=== PATIENT | female | born 1975 | race Caucasian/White ===

== ENCOUNTER → 2016-04-12 | Outpatient (CLI) | payer OTHER ==
--- NOTE | 2016-04-12 09:46 | US ---
April 12, 2016 Dear Providers at the Center [facility], Thank you for requesting consultation and a detailed obstetrical ultrasound for Mrs. Yao hook y to advanced maternal age and IVF . As you know, Lea is a 41 year old G 3, P 0020 . Her d ue date is 08/31/16 by IVF dating. Her current gestational age based on this dating is 19 weeks 6 da ys. Her genetic screening revealed preimplantation genetic diagnosis that was reassuring. She was o ffered and declined aneuploidy screening while . She has a known fibroid uterus and is hypot hyroid on replacement. ULTRASOUND Number of fetuses: 1 Placental location: Posterior; no evidence of previa Placental cord insertion: Intraplacental presentation: Breech Cervix: 4.1 cm viewed transabdominally Maximum Vertical Pocket: 4.6 cm The adnexa were evaluated. No pathology was seen. Right ovary is visualized and appears normal. It measures 1.8 x 1.7 x 1.8 cm. Left ovary is suboptimally seen. Small fibroid of the posterior uterine wall measuring 3.2 x 3.2 x 2.9 cm. Previously measured 4.0 x 3 .5 x 3.0 cm. MEASUREMENTS: Biparietal diameter: 45 mm 19 weeks, 5 days Head circumference: 172 mm 19 weeks, 6 days Abdominal circumference: 162 mm 21 weeks, 3 days Femur length: 33 mm 20 weeks, 2 days Humerus length: 33 mm 21 weeks, 2 days Transcerebellar diameter: 20 mm 19 weeks, 4 days Average ultrasound age: 20 weeks, 3 days Estimated weight: 370 gm weight percentile: 88% ANATOMY Supratentorial brain: Normal including views of the falx, cavum septum pellucidum and choroids Lateral Ventricle: Normal, measuring 6.9 mm Posterior fossa: Normal including the cerebellum and cisterna magna Spine: Normal Nuchal fold: 3.3 mm normal Face: Normal views of the lip and nose area Profile: Normal Palate: Normal appearance of the alveolar ridge Cardiac Exam: Four chamber view of the heart: Normal including intraventricular septum Left Ventricular Outflow Tract: Limited that appears correctly oriented Right Ventricular Outflow Tract: Limited that appears correctly oriented 3 Vessel View: Suboptimal Tracheal View: Suboptimal Aortic Arch: Normal Ductal Arch: Normal SVC/IVC: Suboptimal Heart Rate: 152 bpm Diaphragm: No overt abnormalities have been detected Stomach: Normal Umbilical cord insertion: Normal Right kidney: Normal Left kidney: Normal Bladder: Normal Number of cord vessels: Three Upper extremities: Normal including the number, and architecture Lower extremities: Normal including the number and architecture Gender: Undisclosed; "Normal" IMPRESSION: 1. Intrauterine at 19 w 6 d, SHERYL of 08/31/16. This is consistent with her previously esta blished dates. 2. Today's sonogram reveals a normal appearing fetus. 3. Cervical length measures 4.1 cm, and is without evidence of insufficiency. 4. Advanced maternal age 5. IVF with preimplantation genetic diagnosis 6. Small fibroid; stable RECOMMENDATIONS: I was pleased to review today's ultrasound with your patient. I have reassured her that the gr owth and amniotic fluid volume are appropriate for this gestational age. The detailed anatomic surve y did not reveal any overt abnormalities. Lea is aware that ultrasound is a screening tool an d cannot provide definitive genetic diagnosis. Should she desire definitive genetic diagnosis, she w ould need to have a genetic amniocentesis performed. After our discussion regarding the procedure, b enefits, risks, alternatives, and limitations to the information received Lea DECLINES amniocentesis. Recommendations: 1. Lea is scheduled for a screening echocardiogram on 05/02/16 2. Recommend an assessment of growth for all women >40 years between 30-32 weeks. 3. Consider testing at 36 weeks (unless indicated sooner) for women age 40 and older. Thank you for allowing me the opportunity to consult and evaluate your patient. Should you have any questions or concerns please do not hesitate to contact me. This visit was approximately 15 minutes in length with 10 minutes spent in direct face to face consultation reviewing aneuploidy screening ve rsus definitive genetic diagnosis. Sincerely, Urvashi Ross MD [employer] Director Maternal Medicine Department of Obstetrics & Gynecology [facility]
--- NOTE | 2016-04-12 11:14 | US ---
Detailed Obstetric Ultrasound Indication: Advanced maternal age. Check growth and anatomy. History of uterine fibroids. IVF p regnancy. Maternal hypothyroidism. Comparison: February 20, 2016 Dr. Urvashi Ross was present during imaging. Findings: Biometry: Average gestational age by ultrasound: 20 weeks 3 days with EDC by ultrasound of August 27, 2016. Estimated gestational age by IVF datin weeks 6 days with an EDC by IVF of August 31, 2016. Maternal Ovaries: Normal in appearance with the right ovary measuring 1.8 x 1.7 x 1.8 cm the left ova ry measuring 2.1 x 1.2 x 1.2 cm. Maternal fibroid posterior lower uterine segment, subserosal, 3.2 x 3.2 x 2.9 cm (previously 1.5 x 1. 8 x 2.4 cm). Previously documented small fibroids measuring up to 1 cm not as well-visualized on toeric y's study. Number: 1 Presentation: Breech presentation at this time. Placental location: Posterior without previa. Central umbilical cord insertion. Cervix: 4.1 cm from transabdominal measurement. Amniotic fluid maximum vertical pocket: 4.6 cm Biparietal diameter: 19 weeks 5 days, 4.52 cm Head circumference: 19 weeks 6 days, 17.19 cm Abdominal circumference: 21 weeks 3 days, 16.24cm Femur length: 20 weeks 2 days, 3.28 cm Humerus length: 21 weeks 2 days, 3.33 cm Transcerebellar diameter: 19 weeks 4 days, 2.03 cm Estimated weight is 370 gms (13 ounces). The estimated weight is at the 88th percentile b ased on LMP. Anatomy Survey: Supratentorial brain: Normal Posterior fossa: Normal Spine: Normal Nose and lips: Normal Profile: Normal Heart: Four chamber heart with normal interventricular septum heart rate of 152 bpm. RVOT: Normal LVOT: Normal Stomach: Normal Umbilical cord insertion: Normal Kidneys: Normal, no pyelectasis Bladder: Normal Number of cord vessels: Three Upper extremities: Normal Lower extremities: Normal Gender: Female Impression: 1. Living juarez in breech presentation. 2. Size concordant with dates as detailed above. 3. Unremarkable anatomy. No anomalies detected.
== END ==
LOC: FIMAGING 08:18
PROVIDERS: ATTEND Advanced Practice Midwife
DX: O09.522 Supervision of elderly multigravida, second trimester (principal); O09.812 Supervision of pregnancy resulting from assisted reproductive technology, second trimester; D25.9 Leiomyoma of uterus, unspecified; Z3A.19 19 weeks gestation of pregnancy

== ENCOUNTER 2016-09-06 06:50 | Inpatient (IN) | payer OTHER ==
--- NOTE | 2016-09-06 07:13 | PREANESOB ---
Obstetric Pre-Anesthesia Info - General Info Proposed Procedure: Labor and delivery. : 3 Para: 0 WBD: 41 - Info Status: Postmature Monitors: External FHR Baseline (bpm): 140 FHR Pattern: Reassuring - Labor Status Cervical Dilation per last OB SVE: 5 Indications for Labor Analgesia: Pain Control Labor Epidural: Proposed Anesthesia ROS: IVF , Hypothyroid. Allergies/Adverse Reactions: Allergy/AdvReac Type Severity Reaction Status Date / Time No Known Allergies Allergy Unverified 09/06/16 07:26 - Anesthesia History Response to Local Anesthetics: Normal Anesthesia & Operative History: No Prior Problems Family Anesthesia History: Negative - Social History Substance Use/Abuse: Denies - Focused Exam Blood Pressure: 129/61 Heart Rate: 104 Airway: No abnormalities Physical Exam: Within normal limits. ASA Status: II - Plan Anesthetic Plan: CSE Consent Signed and on Chart: Yes Patient/Guardian Understands and Agrees to Plan: Yes Urgent/Emergent Case: Nan adams completed preop but documented later for safe timely pt care
--- NOTE | 2016-09-06 07:26 | POSTANESTH ---
Post Anesthetic Evaluation Cardiovascular Status: Normal, Stable Respiratory Status: Normal, Stable, Similar to Pre-op Cond. Level of Consciousness/Mental Status: Can Participate in Eval, Alert and Oriented Pain Control: Adequate, Prn Tx Ordered Nausea/Vomiting Control: Adequate, Prn Tx Ordered Complications Possibly Related to Anesthesia: None Noted
[2016-09-06] MEDS ORDERED: OXYTOCIN/RINGERS LACTATE 1,000 ML IV PRN (07:27)
[2016-09-06] MEDS ORDERED: TERBUTALINE SULFATE 1 MG/ML VIAL IV PRN (07:27)
[2016-09-06] MEDS ORDERED: LR 1,000 ML IV PRN (07:27)
[2016-09-06] MEDS ORDERED: OLIVE OIL 118 ML BTL MISC PRN (07:27)
[2016-09-06] MEDS ORDERED: EPSOM SALT 454 GM TP PRN (07:27)
[2016-09-06] MEDS ORDERED: fentaNYL 2MCG/ML/BUP 0.1% RTU 100 ML BAG EP ONE (07:46)
[2016-09-06] MEDS ORDERED: PHENYLEPHRINE HCL 100 MCG/ML SYR ONE (07:47)
[2016-09-06] MEDS ORDERED: BUPIVACAINE 0.25% 30 ML SDV ONE (07:47)
[2016-09-06 07:58] LABS: ADD DIFF? YES; ADD MORPH? NO; ADD SCAN? NO; ATYPICAL LYMPHOCYTE FLAG 0 (0-99); FRAGMENT RBC FLAG 0 (0-99); HEMATOCRIT 42.8 % (38.0-47.0); HEMOGLOBIN 14.3 g/dL (12.6-16.3); LEFT SHIFT FLG 30 (0-99); LIPEMIA HEMOLYSIS FLAG 80 (0-99); MEAN CELL HEMOGLOBIN CONCENTR. 33.4 g/dL (32.4-36.7); MEAN CELL VOLUME 89.9 fL (81.5-99.8); MEAN PLATELET VOLUME 11.5 fL (8.7-11.7); PLATELET CLUMPS FLAG 10 (0-99); PLATELET COUNT 223 10^3/uL (150-400); RED BLOOD CELL COUNT 4.76 10^6/uL (4.18-5.33); RED CELL DISTRIBUTION WIDTH 14.7 % (11.5-15.2)
[2016-09-06] MEDS ORDERED: ONDANSETRON 4 MG/2 ML VIAL IVP PRN (08:39)
[2016-09-06] MEDS ORDERED: PHENYLEPHRINE HCL 100 MCG/ML SYR IVP PRN (08:39)
[2016-09-06] MEDS ORDERED: LR 500 ML IV PRN (08:59)
[2016-09-06] MEDS ORDERED: LR 500 ML IV SCH (09:00)
[2016-09-06] MEDS ORDERED: fentaNYL 2MCG/ML/BUP 0.1% RTU 100 ML EP SCH (09:00)
[2016-09-06] MEDS ORDERED: OXYTOCIN/RINGERS LACTATE 500 ML IV SCH (09:00)
[2016-09-06 09:12] LABS: PLATELET ESTIMATE ADEQUATE (ADEQ)
[2016-09-06] MEDS ORDERED: OLIVE OIL 118 ML BTL ONE (09:22)
[2016-09-06] MEDS ORDERED: AMMONIA AROMATIC 1 EACH AMP IH ONE (09:22)
[2016-09-06] MEDS ORDERED: LIDOCAINE 1% 300 MG/30 ML SDV ONE (09:22)
[2016-09-06] MEDS ORDERED: MISOPROSTOL 200 MCG TAB ONE (09:23)
[2016-09-06] MEDS ORDERED: TERBUTALINE SULFATE 1 MG/ML VIAL ONE (09:23)
--- NOTE | 2016-09-06 13:28 | OBPROG ---
OBG Labor Progress Note Assessment/Plan: Assessment: IUP at 40w5d - transfer from [facility] SROM 19:30 - light meconium DARWIN Pitocin augmentation hx of myomectomy - hysteroscopic Plan: On pit - feeling pressure - bolus DARWIN 09/06/16 13:24 Subjective: Pt doing well and has been able to rest. Starting to feel more low abd discomfort. Will bolus DARWIN Objective: 09/06/16 07:30 Patient ABO/Rh O POSITIVE 09/06/16 07:30 Temp Pulse Resp BP Pulse Ox 104 H 129/61 H 09/06/16 08:39 09/06/16 08:39 - SVE Dilation (cm): 9 Effacement (%): 100 Station: +1 Calderon Current Contraction Pattern: Regular (q 2-4 min on Pit 10 mu/min) FHR (bpm): 130 FHR Pattern Variability: Moderate FHR Category: 1 Membranes: SROM Amniotic Fluid Color: Meconium Stained Oxytocin Orders Assessment - Pre-Induction/Augmentation Assessment Gestational Age: 40 week(s) and 6 day(s) ICD10 Worksheet Patient Problems: Problems Problem Status Onset Meconium in amniotic fluid affecting management of mother Acute
--- NOTE | 2016-09-06 14:55 | GHP ---
[f rep st] PREOP HISTORY AND PHYSICAL DATE OF ADMISSION: 09/06/2016 HISTORY UPON ADMISSION: The patient is a 41-year-old, G3, A2, at 40 weeks and 5 days, with an estim ated due date of 08/31/2016 established by IVF transfer, who has been followed by [facility] and is requesting pain management and also has meconium-stained fluid. The patient had spontaneo us onset of contractions at 1500 on 09/05, that were manageable, that increased after spontaneous ru pture of membranes at 1930. There was meconium-stained fluid upon rupture of membranes. The rl flores's pain did increase following rupture, and the patient was noted to be 4 cm dilated. A couple of hours after rupture of membranes and at approximately 2:30 in the morning, the patient was 5 cm dila osiel. The senior application security consultant did not feel there was progress at 6:00 a.m. with another exam showing 5 cm dilati on, and the patient at this point was extremely uncomfortable and requested an epidural. The patien mark then was brought to [facility] for labor management and requesting an epidural. T he patient was continuing to have leakage of fluid with light meconium staining. Upon admission, th e patient's IV was started and initial laboratory drawn, and Dr. Kirk has placed an epidural afte r admission. The patient is comfortable with the epidural and able to rest. During the labor progr ess, the patient was feeling good movement. CARE: The patient was followed by the [facility] [place], with essentially an uncomp licated . The patient did have IVF with [facility]. The patient had a 20-week ultrasound with alyce das specialist, Dr. Ross, and that exam was normal. At that time, the patient was noted to have a uterine fibroid 4 x 3 cm. The patient also with the IVF history had a echo that was normal in the . The patient is advanced maternal age, and received twice weekly NSTs sin e 36 weeks. The patient has been followed for hypothyroidism, and has had TSH checks multiple times through the . The patient has been stable on her medication. LABS: Maternal blood type O positive, with negative antibody screen, RPR nonreactive, hepa titis B surface antigen nonreactive, hepatitis C nonreactive, rubella immune, HIV nonreactive. Init ial platelets 232,000, and hematocrit 43%. Gonorrhea and chlamydia were negative. Pap smear was no rmal with negative HPV. Urine analysis and culture were negative. Multiple thyroid checks were in the normal range. Vitamin D was 42. Preconception genetic analysis was normal. MSAFP was negative . A 1-hour Glucola was normal. A recheck of the hematocrit had dropped to 38%. GBS culture was ne gative. Additionally, a CMV was performed, it was negative. PAST MEDICAL HISTORY: Hypothyroidism, and anxiety after 2 losses. PAST SURGICAL HISTORY: Appendectomy in 2002, myomectomy in 2015. There is no clear documentation a s to the exact nature of the myomectomy. One comment in the records from the Center reveals t hat this was a polyp removed via myomectomy. The patient does report that she was told she had fibr oids removed, and it was at a [facility] in 2014. The patient reports it was under anesthesia with a vaginal approach. She was not given any caution that this would necessitate a C-s ection delivery. The patient then also reports having an HSG with [facility]. PAST HISTORY: A SAB at 10 weeks gestation in February 2015, and another SAB at 6 weeks ge station in July 2015. ALLERGIES: No known drug allergies. CURRENT MEDICATIONS: Levothyroxine at 75 mcg a day, and other supplements. No other prescription m edicines. SOCIAL HISTORY: The patient has a same sex partner, and she is here and supportive. The patient is a nonsmoker. No alcohol or drug use. PHYSICAL EXAMINATION: GENERAL: The patient is a well-developed, well-nourished, white female, sign ificantly more comfortable now with epidural. VITAL SIGNS: The patient's blood pressures in the no rmal ranges before the epidural, 120s 130s over 60s to 70s. The patient is afebrile. Upon monitori ng, the baby has a category 1 tracing with a baseline in the 130s with moderate variability and good accelerations. There has been no decelerations noted. Initially after the epidural, contractions were spaced out greater than 4 to 5 minutes, mild intensity. PELVIC: Exam performed and light meco nium was noted. Cervix was 7 cm and 100% effaced, at 0 station. The cervix was very soft and stret chable, up to 8 cm. EXTREMITIES: Nontender with 2+ edema. ASSESSMENT: Advanced maternal age at 41 with intrauterine at 40 weeks and 5 days, with tr hugo from [facility] for pain management. Now comfortable with an epidural. The patient has devlin d light meconium since rupture of membranes at 1930 on 09/05. GBS is negative. Discussed with sandra ent initiating Pitocin for labor augmentation, and she agrees. The patient does have a history of a myomectomy, which by the patient's account of the procedure, did not sound like it was transmural. Have requested from the [facility] to send any operative reports that they have received, but do not have anything at this time. History of IVF through [facility] with donor sperm. Echo gema l in the . Hypothyroidism, on medication with normal labs. PLAN: We will continue the Pitocin to advance labor. /[id number]/MODL
[2016-09-06] MEDS ORDERED: CALCIUM CARBONATE 500 MG CHEWABLE TAB PO ONE (16:45)
[2016-09-06] MEDS ORDERED: fentaNYL 100 MCG/2 ML INJ ONE (19:56)
[2016-09-06] MEDS ORDERED: METHYLERGONOVINE MAL 0.2 MG/ML INJ ONE (20:01)
[2016-09-06] MEDS ORDERED: ACETAMINOPHEN 325 MG TAB PO PRN (21:03)
[2016-09-06] MEDS ORDERED: fentaNYL 100 MCG/2 ML INJ IVP PRN (21:04)
--- NOTE | 2016-09-06 21:10 | OBDEL ---
Info Type: Vaginal GBS+: No Indications for Delivery: Spontaneous Labor (transfer from [facility] for DARWIN) , SROM Vaginal Delivery - Labor and Delivery Onset of Contractions Date: 09/05/16 Onset of Contractions Time: 15:00 Onset of Contractions Type: Spontaneous Rupture of Membranes Date: 09/05/16 Rupture of Membranes Time: 19:30 Rupture of Membranes Type: Spontaneous Amniotic Fluid Color: Meconium Stained Dilation Complete Date: 09/06/16 Dilation Complete Time: 15:30 Placenta Delivery Date: 09/06/16 Placenta Delivery Time: 20:16 Total Hours of Labor: 29 Laceration: 2nd Degree Repair: 2-0, 3-0, Vicryl Vaginal Sponge Count Correct: Yes Vaginal Needle Count Correct: Yes Vaginal Sweep Performed: No EBL: 700 Delivery Events: Nuchal Cord (x1 tight and cut on perineum), Post Hemorrhage (before delivery of placenta - two large gushes - delayed delivery of placenta and manual extraction from uterine vault but had fully...uterine lining thin - by ultrasound - maintained good tone but small amount free flow.) - Medications Labor Augmentation/Induction Methods Used: Pitocin Labor Augmentation/Induction Indication: Other (Specify) (protracted labor ctxns following DARWIN) [place] Data Calderon Delivery Date: 09/06/16 Delivery Time: 19:43 SHERYL: 08/31/16 Gestational Age: 40 week(s) and 6 day(s) Sex of : Female Score (1 Min): 8 Score (5 Min): 9 ICD10 Worksheet Patient Problems: Problems Problem Status Onset (spontaneous vaginal delivery) Acute
--- NOTE | 2016-09-06 21:19 | OBGCSDC ---
General Delivery Information - General Info : 3 Para: 1 Abortions: 2 (SABs x 2) Delivery Physician/CNM: Malaika Salomon Admission Date: 09/06/16 Labs: Patient ABO/Rh O POSITIVE 09/06/16 07:30 Hct 42.8 % (38.0-47.0) 09/06/16 07:30 Vaginal - Diagnosis Labor: Spontaneous Presentation at Delivery: Vertex Rupture of Membranes Type: Spontaneous Amniotic Fluid Color: Meconium Stained Laceration: 2nd Degree Repair: 2-0, 3-0, Vicryl Delivery Events: Nuchal Cord (x1 tight and cut on perineum), Post Hemorrhage (before delivery of placenta - two large gushes - delayed delivery of placenta and manual extraction from uterine vault but had fully...uterine lining thin - by ultrasound - maintained good tone but small amount free flow.) - Hospital Course Antepartum: followed by [facility] - IVF with [facility] - had echo - normal. Hx of hysteroscopic myomectomy - no records. AMA Intrapartum: SOOC at 1500 on 09/05, SROM at 1930 on 09/05, mec noted upon SROM - brought in from [facility] at 6 am requesting DARWIN. 7/100/0 on admit, pit augment for protracted ctxns. complete at 1530 - pushed 4hours. delayed delivery of placenta - 30 min. manually extracted from uterus but had already released -- 700 EBL, majority of which was before placenta out. u/s checked and thin lining - good tone - Delivery Type: Vaginal EBL: 700 Data Calderon Delivery Date: 09/06/16 Delivery Time: 19:43 SHERYL: 08/31/16 Gestational Age: 40 week(s) and 6 day(s) Sex of Infant: Female Score (1 Min): 8 Score (5 Min): 9
[2016-09-07] MEDS: LEVOTHYROXINE 75 MCG TAB PO SCH (06:04)
[2016-09-07] MEDS: IBUPROFEN 600 MG TAB PO PRN ×3 (06:07→18:59)
[2016-09-07] MEDS: DOCUSATE SODIUM 100 MG CAP PO PRN (06:39)
[2016-09-07] MEDS: HYDROCODONE/APAP 5/325 TAB PO PRN ×4 (06:40→23:21)
--- NOTE | 2016-09-07 21:45 | OBPP ---
Progress Note Assessment/Plan: Assessment: ppd# 1 s/p breast feeding Plan: routine post care 09/07/16 21:43 Subjective: patient is doing well. pain is well controlled. started ibuprofen and norco. denies headache and changes in vision. denies headache and changes in vision. normal lochia. working on breast feeding. baby very fussy. considering donor milk. Objective: 09/07/16 06:45 Patient ABO/Rh O POSITIVE 09/06/16 07:30 Temp Pulse Resp BP Pulse Ox 36.5 C 91 15 91/60 L 97 09/07/16 08:50 09/07/16 08:50 09/07/16 08:50 09/07/16 08:50 09/07/16 08:50 Uterine Position/Fundal Height: At Umbilicus Uterine Tone: Firm Physical Exam - Physical Exam General Appearance: WD/WN, alert, no apparent distress Respiratory: chest non-tender, lungs clear, normal breath sounds Cardiac/Chest: normal peripheral pulses, regular rate, rhythm Abdomen: normal bowel sounds, hypoactive bowel sounds Extremities: normal range of motion, non-tender, normal inspection, normal capillary refill Skin: normal color, warm/dry Neuro/Psych: no motor/sensory deficits, alert, normal mood/affect, oriented x 3
[2016-09-07 21:55] VITALS: BP 96/54; PULSE 89; RESP 16; TEMP 97.4; O2SAT 96
[2016-09-08] MEDS: IBUPROFEN 600 MG TAB PO PRN ×3 (00:58→14:27)
[2016-09-08] MEDS: LEVOTHYROXINE 75 MCG TAB PO SCH (07:42)
[2016-09-08] MEDS: HYDROCODONE/APAP 5/325 TAB PO PRN (07:46)
[2016-09-08] MEDS: DOCUSATE SODIUM 100 MG CAP PO PRN (07:46)
--- NOTE | 2016-09-08 09:06 | OBPP ---
Progress Note Assessment/Plan: Assessment: ppd# 2 s/p breast feeding Plan: routine post care discharge instructions 09/08/16 09:04 Subjective: patient is doing well. pain is well controlled. normal lochia. denies headache and changes in vision. working in breast feeding. used donor milk yesterday. passing gas. denies headache and changes in vision. Objective: 09/07/16 06:45 Patient ABO/Rh O POSITIVE 09/06/16 07:30 Temp Pulse Resp BP Pulse Ox 36.3 C 89 16 96/54 L 96 09/07/16 21:53 09/07/16 21:53 09/07/16 21:53 09/07/16 21:53 09/07/16 21:53 Physical Exam - Physical Exam General Appearance: WD/WN, alert, no apparent distress Neck: non-tender, full range of motion Respiratory: chest non-tender, lungs clear, normal breath sounds Cardiac/Chest: normal peripheral pulses, regular rate, rhythm Abdomen: normal bowel sounds, hypoactive bowel sounds Extremities: normal range of motion, non-tender, normal inspection, normal capillary refill Skin: normal color, warm/dry Neuro/Psych: no motor/sensory deficits, alert, normal mood/affect, oriented x 3
--- NOTE | 2016-09-08 09:16 | OBGCSDC ---
General Delivery Information - General Info : 3 Para: 0 Delivery Physician/CNM: Malaika Salomon Labs: Patient ABO/Rh O POSITIVE 09/06/16 07:30 Hct 28.1 % (38.0-47.0) L D 09/07/16 06:45 Vaginal - Diagnosis Labor: Spontaneous Presentation at Delivery: Vertex Rupture of Membranes Type: Spontaneous Amniotic Fluid Color: Meconium Stained Laceration: 2nd Degree Repair: 2-0, 3-0, Vicryl Delivery Events: Nuchal Cord (x1 tight and cut on perineum), Post Hemorrhage (before delivery of placenta - two large gushes - delayed delivery of placenta and manual extraction from uterine vault but had fully...uterine lining thin - by ultrasound - maintained good tone but small amount free flow.) - Operations/Procedures L&D Analgesia/Anesthesia Type: Epidural - Hospital Course Antepartum: concieved by ivf. care at [facility]. srom at 40 5/7 weeks. meconium. came in for pain management . Intrapartum: epidural. pushed x 4 hours. : issues with . working with lacation and supplementing with donor milk. norco and ibuprofen for pain. normal lochia. - Delivery L&D Analgesia/Anesthesia Type: Epidural Data Calderon Delivery Date: 09/06/16 Delivery Time: 19:43 SHERYL: 08/31/16 Gestational Age: 41 week(s) and 1 day(s) Sex of : Female [place] Weight (gm): 4514 kg Score (1 Min): 8 Score (5 Min): 9 Discharge Information - Discharge Information Condition: Good
== END 2016-09-08 17:15 | disposition home or self-care (01) | DRG 774 ==
LOC: FLD 06:50 → FOB 23:42
PROVIDERS: ADMIT Obstetrics & Gynecology; ATTEND Obstetrics & Gynecology
PROC: 0KQM0ZZ Repair Perineum Muscle, Open Approach (ICD-10-PCS; principal; 2016-09-06)
PROC: 10E0XZZ Delivery of Products of Conception, External Approach (ICD-10-PCS; principal; 2016-09-06)
DX: O48.0 Post-term pregnancy (principal); Z37.0 Single live birth; O72.1 Other immediate postpartum hemorrhage; Z3A.40 40 weeks gestation of pregnancy; O99.284 Endocrine, nutritional and metabolic diseases complicating childbirth; E03.9 Hypothyroidism, unspecified; O34.13 Maternal care for benign tumor of corpus uteri, third trimester; D25.9 Leiomyoma of uterus, unspecified; O69.2XX0 Labor and delivery complicated by other cord entanglement, with compression, not applicable or unspecified; O70.1 Second degree perineal laceration during delivery
CPT/HCPCS: J2210; J2370; J2590; J3010; J3105

== ENCOUNTER → 2016-09-14 | Outpatient (CLI) | payer OTHER | LOC: FLACT 09:22 | PROVIDERS: ATTEND Obstetrics & Gynecology | DX: O92.5 Suppressed lactation (principal) | CPT/HCPCS: G0463 ==

== ENCOUNTER → 2016-10-09 | Outpatient (CLI) | payer OTHER | LOC: FLACT 12:48 | PROVIDERS: ATTEND Obstetrics & Gynecology | DX: Z39.1 Encounter for care and examination of lactating mother (principal) | CPT/HCPCS: G0463 ==

== ENCOUNTER 2016-11-29 10:42 | Emergency (ER) | payer MEDICAID, OTHER ==
[2016-11-29 12:43] LABS: % IMMATURE GRANULYOCYTES 0.2 % (0.0-1.1); ABSOLUTE IMMATURE GRANULOCYTES 0.02 10^3/uL (0.00-0.10); ADD DIFF? NO; ADD MORPH? NO; ADD SCAN? NO; ATYPICAL LYMPHOCYTE FLAG 20 (0-99); FRAGMENT RBC FLAG 0 (0-99); HEMATOCRIT 39.7 % (38.0-47.0); HEMOGLOBIN 12.9 g/dL (12.6-16.3); LEFT SHIFT FLG 0 (0-99); LIPEMIA HEMOLYSIS FLAG 80 (0-99); MEAN CELL HEMOGLOBIN 28.9 pg (27.9-34.1); MEAN CELL HEMOGLOBIN CONCENTR. 32.5 g/dL (32.4-36.7); MEAN CELL VOLUME 88.8 fL (81.5-99.8); MEAN PLATELET VOLUME 11.8 fL (8.7-11.7); PLATELET CLUMPS FLAG 10 (0-99); PLATELET COUNT 207 10^3/uL (150-400); RED BLOOD CELL COUNT 4.47 10^6/uL (4.18-5.33); RED CELL DISTRIBUTION WIDTH 14.6 % (11.5-15.2)
[2016-11-29 13:01] LABS: ANION GAP 11 mEq/L (8-16); CALCIUM 9.3 mg/dL (8.5-10.4); CARBON DIOXIDE 24 mEq/l (22-31); CHLORIDE 102 mEq/L (97-110); CREATININE 0.8 mg/dL (0.6-1.0); GLOMERULAR FILTRATION RATE > 60; GLUCOSE 90 mg/dL (70-100); POTASSIUM 4.2 mEq/L (3.5-5.2); SODIUM 137 mEq/L (134-144)
[2016-11-29] MEDS ORDERED: IOPAMIDOL (ISOVUE 370) 100 ML BTL IV ONE (13:03)
--- NOTE | 2016-11-29 13:47 | EDPHY ---
H & P Stated Complaint: "I think I have PNA" Pt is 11 wk Time Seen by Provider: 11/29/16 11:25 HPI/ROS: Chief complaint: Pneumonia History of present illness: This is a 41-year-old female, who is 11 weeks , who presents to the emergency department concerned she has pneumonia. Patient reports the onset of symptoms over the last 3 days. She initially developed chills and night sweats. She has subsequently developed a productive cough and rattling in her right upper lung area. States symptoms are persistent. She denies precipitating factors. She denies alleviating factors. She denies other associated signs or symptoms including no fevers, no shortness of breath, no rash. Review of systems: A 10 point review of systems was obtained and other than described above was negative - Personal History LMP (Females 10-55): Unknown Current Tetanus Diphtheria and Acellular Pertussis (TDAP): Yes - Medical/Surgical History Hx Asthma: No Hx Chronic Respiratory Disease: No Hx Diabetes: No Hx Cardiac Disease: No Hx Renal Disease: No Hx Cirrhosis: No Hx Alcoholism: No Hx HIV/AIDS: No Hx Splenectomy or Spleen Trauma: No Other PMH: HYPOTHYROID; HX APPY & MYOMECTOMY - Social History Smoking Status: Former smoker - Physical Exam Exam: General Appearance: Alert, nontoxic. Eyes: Pupils equal and round no pallor or injection. ENT, Mouth: Mucous membranes moist. Respiratory: There are no retractions, lungs are clear to auscultation. Cardiovascular: Regular rate and rhythm. Gastrointestinal: Abdomen is soft and nontender, no masses, bowel sounds normal. Neurological: Alert and oriented x4. Strength and sensation intact and symmetrical. Skin: Warm and dry, no rashes. Musculoskeletal: Neck is supple nontender. Extremities are symmetrical, full range of motion. Psychiatric: Patient is oriented X 3, there is no agitation. Constitutional: Initial Vital Signs Temperature (C) 37.8 C 11/29/16 10:50 Heart Rate 96 11/29/16 10:50 Respiratory Rate 18 11/29/16 10:50 Blood Pressure 104/76 11/29/16 10:50 O2 Sat (%) 98 11/29/16 10:50 O2 Delivery Mode Room Air Allergies/Adverse Reactions: No Known Allergies Allergy (Verified 11/29/16 10:51) Home Medications: Medication Instructions Recorded CHOLECALCIFEROL [VITAMIN D] 1 tab PO DAILY 09/06/16 Jane Root [Jane] 1 tab PO DAILY 09/06/16 LEVOTHYROXINE SODIUM [Tirosint 75 75 mcg PO 09/06/16 mcg] Vit27&Calcium/Iron/FA 1 tab PO DAILY 09/06/16 [] UBIDECARENONE [CO Q-10] 1 tab PO DAILY 09/06/16 VITAMIN B COMPLEX 1 tab PO DAILY 09/06/16 Ibuprofen [Motrin (*)] 600 mg PO Q6HRS PRN #0 tab 09/08/16 Amoxicillin/Clavulanate Pot 875 mg PO BID 14 Days tab 11/29/16 [Augmentin 875 MG TAB (*)] Medical Decision Making - Diagnostics Imaging Results: Imaging Impressions Chest X-Ray 11/29/16 11:41 Impression: Suspect right upper lobe pneumonia. If there is concern for underlying malignancy or pulmonary infarction, then CT angiography might be helpful and/or at a minimum followup radiography. Results discussed with Jaleel Chávez at 12:03 AM. Chest/Thorax CTA 11/29/16 12:18 Impression: 1. No pulmonary embolism. 2. Right upper lobe pneumonia, cavitary. It does not represent a postobstructive process. 3. Reactive hilar and mediastinal lymphadenopathy on the right side. 4. Otherwise no central or hilar masses. Findings and recommendations discussed with Jaleel Chávez PA-C at 1330 hours on November 29, 2016. Final report concurs with initial preliminary interpretation. Imaging: Discussed imaging studies w/ parcel post carrier Radiologist, I viewed and interpreted images myself ED Course/Re-evaluation: Patient is discussed with my secondary supervising physician Dr. Joaquín Cristobal. Patient presents to the emergency depart concerned she has pneumonia. She is nontoxic. Vital signs are stable. Chest x-ray concerning for an abnormal right upper lung field finding. Given she is a CT is pursued to better discern what the findings are and to make sure no PE. She appears to have a cavitary pneumonia. Blood studies obtained with only mild leukocytosis. On-call Infectious Disease, Dr. Arley Aviles has been consulted and has seen patient in the emergency room. He has started patient on Unasyn. He is comfortable with patient being discharged home on Augmentin and following up in his clinic. I have discussed home care with the patient. Return precautions are given. Patient voiced understanding and agreement with plan. Differential Diagnosis: Included but not limited to bronchitis, pneumonia, pulmonary embolism or infarct - Data Points Laboratory Results: Laboratory Results 11/29/16 12:41 11/29/16 12:41 11/29/16 11/29/16 11/29/16 12:41 12:41 12:35 WBC 9.60 10^3/uL H 10^3/uL (3.80-9.50) RBC 4.47 10^6/uL 10^6/uL (4.18-5.33) Hgb 12.9 g/dL g/dL (12.6-16.3) Hct 39.7 % % (38.0-47.0) MCV 88.8 fL fL (81.5-99.8) MCH 28.9 pg pg (27.9-34.1) MCHC 32.5 g/dL g/dL (32.4-36.7) RDW 14.6 % % (11.5-15.2) Plt Count 207 10^3/uL 10^3/uL (150-400) MPV 11.8 fL H fL (8.7-11.7) Neut % (Auto) 73.5 % % (39.3-74.2) Lymph % (Auto) 14.3 % L % (15.0-45.0) [place] % (Auto) 9.3 % % (4.5-13.0) Eos % (Auto) 2.2 % % (0.6-7.6) Baso % (Auto) 0.5 % % (0.3-1.7) Nucleat RBC Rel Count 0.0 % % (0.0-0.2) Absolute Neuts (auto) 7.06 10^3/uL H 10^3/uL (1.70-6.50) Absolute Lymphs (auto) 1.37 10^3/uL 10^3/uL (1.00-3.00) Absolute Monos (auto) 0.89 10^3/uL H 10^3/uL (0.30-0.80) Absolute Eos (auto) 0.21 10^3/uL 10^3/uL (0.03-0.40) Absolute Basos (auto) 0.05 10^3/uL 10^3/uL (0.02-0.10) Absolute Nucleated RBC 0.00 10^3/uL 10^3/uL (0-0.01) Immature Gran % 0.2 % % (0.0-1.1) Immature Gran # 0.02 10^3/uL 10^3/uL (0.00-0.10) Sodium 137 mEq/L mEq/L (134-144) Potassium 4.2 mEq/L mEq/L (3.5-5.2) Chloride 102 mEq/L mEq/L (97-110) Carbon Dioxide 24 mEq/l mEq/l (22-31) Anion Gap 11 mEq/L mEq/L (8-16) BUN 10 mg/dL mg/dL (7-23) Creatinine 0.8 mg/dL mg/dL (0.6-1.0) Estimated GFR > 60 Glucose 90 mg/dL mg/dL (70-100) Calcium 9.3 mg/dL mg/dL (8.5-10.4) Coccidioides Ab (CF) Pending Coccidioides IgM Titer Pending Departure - Departure Disposition: Home, Routine, Self-Care Clinical Impression: Pneumonia Qualifiers: Pneumonia type: due to unspecified organism Laterality: right Lung location: upper lobe of lung Qualified Code(s): J18.1 - Lobar pneumonia, unspecified organism Condition: Good Instructions: Bacterial Pneumonia (ED) Additional Instructions: Follow-up with Infectious Disease as discussed Take antibiotics as prescribed Please pump and dump for the next 24 hours If symptoms worsen or new symptoms develop return to the emergency room for recheck Referrals: Arley Aviles MD [Medical Doctor] - 12/04/16 11:00 am NONE *PRIMARY CARE P,. [Primary Care Provider] - As per Instructions Prescriptions: Amoxicillin/Clavulanate Pot [Augmentin 875 MG TAB (*)] 875 mg PO BID 14 Days tab
[2016-11-29] MEDS ORDERED: AMPICILLIN/SULBACTAM 3 GM in NS 100 ML IV ONE (15:29)
[2016-11-29 17:25] VITALS: BP 102/76; PULSE 74; RESP 18; TEMP 99.9; O2SAT 97
--- NOTE | 2016-11-29 17:46 | GCON ---
[f rep st] CONSULTATION INFECTIOUS DISEASES CONSULTATION DATE OF CONSULTATION: 11/29/2016 REFERRING PHYSICIAN: TAMMY Montez REASON FOR CONSULTATION: Right upper lobe cavitary pneumonia. HISTORY OF PRESENT ILLNESS: The patient is a 41-year-old female who is 11 weeks , who I am asked to see in consultation for a right upper lobe cavitary pneumonia. The patient describes devel oping subjective fever, shaking chills, and drenching night sweats earlier this week. This was assoc iated with right-sided shoulder pain. The patient initially did not have any cough, but subsequently has developed a cough with some sputum production, although this has remained relatively scant. The sputum does not have a foul odor or taste. The patient at the time of her delivery was noted to hav e some hemorrhage. She does not recall any episodes of aspiration or over-sedation. Appr oximately 3-4 weeks ago, the patient describes that she and her infant both had a cold. This resolve d spontaneously. The patient has not had any recent dental problems or dental work, and notes that h er dentist comments on outstanding dental repair. The patient does have a history of traveling inter mittently to [place] to visit her mother. She is originally from the [place] area. She has also naren ed in [place]. The patient describes that her brother had tuberculosis when she was a child, but s he is unclear if this was active TB or latent TB. She describes having a skin test at that time whic h was negative. She believes this was between ages 4 and 6. The patient does not have any unusual a nimal exposures. No recent travel history. 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 She does not recall any illness in her stude nt. She also worked as a tow truck driver, but does not recall any specific exposures. Yesterday, the pa nicole noted a gurgling sound in her chest which she described as a sound of a rocking chair on a wood porch. This prompted her seeking care in the Emergency Department. Chest x-ray was performed which showed a right upper lobe infiltrate. This was further characterized by CT scan which shows a right upper lobe pneumonia characterized by dense consolidation measuring 4.6 x 4.8 cm with a central pock et of air that is 11 x 10 mm. There is adjacent patchy pneumonia present. The patient did travel to [place] and along the coast of [facility] 5 or 6 years ago. Given the above findings , I am now asked to assist in her ongoing management. PAST MEDICAL HISTORY: Hypothyroidism. PAST SURGICAL HISTORY: Appendectomy, uterine polyp removal. CURRENT MEDICATIONS: Levothyroxine 75 mcg p.o. daily. ALLERGIES: No known drug allergies. SOCIAL HISTORY: The patient is a former smoker and quit smoking approximately 5 years ago. No signi ficant alcohol intake. No drug use. 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 Prior occup ational history as above. FAMILY HISTORY: Alcoholism, and brother with childhood tuberculosis as described above. REVIEW OF SYSTEMS: Outside that noted in the HPI, the remainder of 10 system review is unremarkable, except for patient is currently breast-feeding. PHYSICAL EXAMINATION: VITAL SIGNS: Temperature 37.8, heart rate 72, respiratory rate 17, blood pres sure 116/78, oxygen saturation 96% on room air. GENERAL: The patient is well-nourished, well-develo ped, in no acute distress. She appears nontoxic. HEENT: There is no scleral icterus, conjunctival injection, or conjunctival petechiae. Oropharynx is clear without lesions. Dentition is in good rep air. There is no nasal discharge. There is no tenderness over the frontal, maxillary, or mastoid ar ea. NECK: Supple without palpable lymphadenopathy or thyromegaly. CHEST: Clear to auscultation bi laterally without adventitious sounds. Respiratory effort is normal. There is rare cough present. CARDIOVASCULAR: Regular rate and rhythm without murmurs, gallops, or rubs. ABDOMEN: Soft, nontende r, nondistended. There is no palpable organomegaly. Bowel sounds are present. MUSCULOSKELETAL: Th ere is no cyanosis, clubbing, or edema. SKIN: Skin is warm and dry to touch. There are no stigmata of endocarditis. NEUROLOGIC: The patient is alert, interacts appropriately with examiner. Cranial nerves 2-12 are grossly intact. Sensation is grossly intact. Muscle tone and bulk are normal. LABORATORY DATA: White blood cell count 9.6, hematocrit 39.7, platelets 207, neutrophils 74%, lympho cytes 14%, serum creatinine 0.8. Chest x-ray and CT scan as outlined above. These were both reviewed and interpreted by me with [employer] [facility] today. IMPRESSION: Right upper lobe cavitary pneumonia at 11 weeks : Clinical appearance and pre sentation are most compatible with a bacterial process with considerations including typical pathogen s of community-acquired pneumonia, as well as mixed oral edison given the appearance of her pneumonia and cavity. Tuberculosis is a consideration with a upper lobe cavitary pneumonia, although overall r adiographic appearance I think is less typical. She does have a possible tuberculosis exposure histo ry in childhood. The patient also has traveled intermittently to [place], raising the possibility of coccidioidomycosis. Both tuberculosis and coccidioidomycosis could be potentially more common with recent . T-SPOT is not possible to be performed today given this is a afternoon. This is also true for PPD. The patient currently is unable to provide any sputum sampling for bacter ial or AFB assessment. RECOMMENDATIONS: 1. Unasyn 3 g IV x1, followed by Augmentin 875 mg p.o. twice daily to provide coverage against mixed aerobic/anaerobic pneumonia; Augmentin should not interfere with ability to continue . 2. We will obtain blood cultures x2 sets. 3. Coccidioides antibody. 4. Anticipate obtaining T-SPOT in the office next week when seen in followup. 5. If the patient does not show clinical improvement with Augmentin, we will need to further assess for tuberculosis with AFB specimens. 6. Advised that the patient remain home from work while additional evaluation and further clinical c ourse can be defined. 7. Follow up in my office next 12/04/2016, at 11:00 a.m. 8. Thank you for this consultation. We will continue to follow the patient as an outpatient. Advised t o notify my office for any worsening symptoms. /[id number]/MODL
== END 2016-11-29 17:25 | disposition home or self-care (01) ==
DX: J18.1 Lobar pneumonia, unspecified organism (principal); Z87.891 Personal history of nicotine dependence
CPT/HCPCS: 86635-90; 96365; J0295; Q9967

== ENCOUNTER 2016-12-03 15:14 | Emergency (ER) | payer MEDICAID ==
[2016-12-03 15:22] VITALS: RESP 16
--- NOTE | 2016-12-03 17:56 | EDPHY ---
H & P Time Seen by Provider: 12/03/16 17:13 HPI/ROS: CHIEF COMPLAINT: Right-sided chest pain HISTORY OF PRESENT ILLNESS: Patient is approximately 12 weeks he was seen in our emergency department on the of this month and had a CT angiography of her chest which showed no pulmonary embolism but a right upper lobe cavitary pneumonia. Patient has been on Augmentin and feels better with less night sweats and less cough but she still has some right chest pain and radiated a little bit to the center and up into her neck over the past 2 days. She also had a single episode last night of left sided lower rib pain which lasted about an hour and has completely gone. Overall she feels better. REVIEW OF SYSTEMS: Eye: no change in vision ENT: no sore throat Cardiac: Right-sided chest pain as in HPI Pulmonary: Decreasing cough Abdomen: no vomiting, diarrhea, abdominal pain Musculoskeletal: no back pain Skin: no rash Neuro: no headache Constitutional: Decrease in night sweats and chills : no urinary symptoms Dr. Aviles is consult note from 11/29/2016 personally reviewed. A comprehensive 10 point review of systems is otherwise negative aside from elements mentioned in the history of present illness. PAST MEDICAL HISTORY: Hypothyroid and appendectomy. Social history: Former smoker. No drug use. No known exposure to tuberculosis. General Appearance: Alert and conversant, cooperative. Eyes: No scleral icterus. ENT, Mouth: Normal mucous membranes. Respiratory: Normal respiratory effort, breath sounds equal, lungs are clear to auscultation. Occasional cough. No consolidation noted. Cardiovascular: Regular rate and rhythm. Gastrointestinal: Abdomen is soft and non tender. No left upper quadrant tenderness. Neurological: Alert and oriented x3. Normally conversant. Face symmetric, normal movement and sensation in all extremities. Skin: Warm and dry, no rashes. Musculoskeletal: No peripheral edema and no joint swelling. Psychiatric: Not agitated. Emergency Department course/MDM: Discussed with Dr. Aviles at 6:25 p.m. who agrees with plan to discharge with office follow-up tomorrow, no further recommendations. Does not recommend repeat imaging. I explained to the patient that she had a CT scan negative for pulmonary embolism on the . I also explained that Dr. Aviles infectious disease garden consultant thought that tuberculosis was unlikely but not 100% excluded. Smoking Status: Former smoker Constitutional: Initial Vital Signs Temperature (C) 36.6 C 12/03/16 15:19 Heart Rate 80 12/03/16 15:19 Respiratory Rate 16 12/03/16 15:19 Blood Pressure 111/79 12/03/16 15:19 O2 Sat (%) 97 12/03/16 15:19 O2 Delivery Mode Room Air Allergies/Adverse Reactions: No Known Allergies Allergy (Verified 12/03/16 15:18) Home Medications: Medication Instructions Recorded CHOLECALCIFEROL [VITAMIN D] 1 tab PO DAILY 09/06/16 Jane Root [Jane] 1 tab PO DAILY 09/06/16 LEVOTHYROXINE SODIUM [Tirosint 75 75 mcg PO 09/06/16 mcg] Vit27&Calcium/Iron/FA 1 tab PO DAILY 09/06/16 [] UBIDECARENONE [CO Q-10] 1 tab PO DAILY 09/06/16 VITAMIN B COMPLEX 1 tab PO DAILY 09/06/16 Ibuprofen [Motrin (*)] 600 mg PO Q6HRS PRN #0 tab 09/08/16 Amoxicillin/Clavulanate Pot 875 mg PO BID 14 Days tab 11/29/16 [Augmentin 875 MG TAB (*)] MDM/Departure - Depart Disposition: Home, Routine, Self-Care Clinical Impression: Pneumonia Condition: Good Instructions: Pneumonia (ED) Referrals: NONE *PRIMARY CARE P,. [Primary Care Provider] - As per Instructions Arley Aviles MD [Medical Doctor] - 1 day without fail (tomorrow as scheduled. Continue current treatment plan.)
[2016-12-03 18:42] VITALS: BP 104/68; PULSE 75; TEMP 96.8; O2SAT 94
== END 2016-12-03 18:45 | disposition home or self-care (01) ==
DX: J18.9 Pneumonia, unspecified organism (principal); Z87.891 Personal history of nicotine dependence

== ENCOUNTER → 2016-12-11 | Outpatient (CLI) | payer MEDICAID | LOC: FIMAGING 11:57 | PROVIDERS: ATTEND Internal Medicine Infectious Disease | DX: J18.1 Lobar pneumonia, unspecified organism (principal); Z79.2 Long term (current) use of antibiotics ==

== ENCOUNTER → 2017-03-13 | Outpatient (CLI) | payer MEDICAID | LOC: FIMAGING 15:40 | PROVIDERS: ATTEND Internal Medicine Infectious Disease | DX: Z87.09 Personal history of other diseases of the respiratory system (principal) ==

== ENCOUNTER → 2017-06-10 | Outpatient (CLI) | payer MEDICAID | LOC: FIMAGING 10:30 | PROVIDERS: ATTEND Internal Medicine | DX: Z12.31 Encounter for screening mammogram for malignant neoplasm of breast (principal) ==

== ENCOUNTER → 2017-12-10 | Outpatient (CLI) | payer MEDICAID | LOC: FIMAGING 08:59 | PROVIDERS: ATTEND Obstetrics & Gynecology | DX: O09.521 Supervision of elderly multigravida, first trimester (principal); O99.211 Obesity complicating pregnancy, first trimester; E66.9 Obesity, unspecified; Z68.33 Body mass index [BMI] 33.0-33.9, adult; O99.281 Endocrine, nutritional and metabolic diseases complicating pregnancy, first trimester; E03.9 Hypothyroidism, unspecified; Z3A.12 12 weeks gestation of pregnancy ==

== ENCOUNTER → 2018-01-14 | Outpatient (CLI) | payer MEDICAID | LOC: FIMAGING 13:32 | PROVIDERS: ATTEND Obstetrics & Gynecology | DX: Z36.89 Encounter for other specified antenatal screening (principal); Z3A.19 19 weeks gestation of pregnancy; O09.522 Supervision of elderly multigravida, second trimester; O09.812 Supervision of pregnancy resulting from assisted reproductive technology, second trimester; O26.892 Other specified pregnancy related conditions, second trimester; O99.282 Endocrine, nutritional and metabolic diseases complicating pregnancy, second trimester; E03.9 Hypothyroidism, unspecified ==